=== PATIENT | male | born 2005 | race Caucasian/White ===

== ENCOUNTER 2023-07-15 14:47 | Outpatient (RCR) | payer OTHER, SELFPAY ==
--- NOTE | 2023-07-11 16:39 | PCPTNOTE ---
patient called and cancelled therapy evaluation today due to too much pain today.
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
--- NOTE | 2023-07-15 15:54 | OPREHPOC ---
Outpatient Therapy Plan of Care This is a Multidisciplinary Plan of Care that may contain components documented by all disciplines (PT, OT, and ST.) PT Problem 1 PT Problem #1 Knowledge Deficit PT Goal 1 Goal Independent with a HEP addressing c-spine ROM Target Visit 2 PT Problem 2 PT Problem #2 Impaired Range of Motion PT Goal 1 Goal Pt. will demonstrate 75 degrees or greater of bilateral c-spine rotation to improve visual field with driving. Pt. will demonstrate 40 degrees or greater of bilateral c-spine lateral flexion. Target Visit 8 PT Problem 3 PT Problem #3 Impaired Functional Mobil PT Goal 1 Goal Pt. will demonstrate less than 30% limitation with the NDI indicating improved overall function. Target Visit 8
--- NOTE | 2023-08-15 14:41 | OPREHPOC ---
Outpatient Therapy Plan of Care This is a Multidisciplinary Plan of Care that may contain components documented by all disciplines (PT, OT, and ST.) PT Problem 1 PT Problem #1 Knowledge Deficit PT Goal 1 Goal Independent with a HEP addressing c-spine ROM Target Visit 2 Progress Met PT Problem 2 PT Problem #2 Impaired Range of Motion PT Goal 1 Goal Pt. will demonstrate 75 degrees or greater of bilateral c-spine rotation to improve visual field with driving. Pt. will demonstrate 40 degrees or greater of bilateral c-spine lateral flexion. Target Visit 8 Progress Not Met PT Problem 3 PT Problem #3 Impaired Functional Mobil PT Goal 1 Goal Pt. will demonstrate less than 30% limitation with the NDI indicating improved overall function. Target Visit 8 Progress Not Met
--- NOTE | 2023-08-15 14:43 | OPREHPOC ---
Outpatient Therapy Plan of Care This is a Multidisciplinary Plan of Care that may contain components documented by all disciplines (PT, OT, and ST.) PT Problem 1 PT Problem #1 Knowledge Deficit PT Goal 1 Goal Independent with a HEP addressing c-spine ROM Target Visit 2 Progress Met PT Problem 2 PT Problem #2 Impaired Range of Motion PT Goal 1 Goal Pt. will demonstrate 75 degrees or greater of bilateral c-spine rotation to improve visual field with driving. Pt. will demonstrate 40 degrees or greater of bilateral c-spine lateral flexion. Target Visit 20 Progress Not Met PT Problem 3 PT Problem #3 Impaired Functional Mobil PT Goal 1 Goal Pt. will demonstrate less than 30% limitation with the NDI indicating improved overall function. Pt. will demonstrate ability to lift 40lbs from floor to waist and carry for 400ft or more. Target Visit 20 Progress Not Met
--- NOTE | 2023-08-15 14:43 | PTOPREEVAL ---
Assessment and note entered by JT File, PT Evaluation Information Assessment Status Re-evaluation Diagnosis pain in the t-spine, cervicalgia Onset 06/12/23 Subjective Information patient reports the last few days have been very painful. he reports he has been trying to do his exercises at home. however, he reports a few days ago he had a fall to his knees when trying to do some of his exercises. he reports the dry needling and therapy has helped, but reports he feels his symptoms go up and down. he reports he is really in pain today. he reports he goes back to the MD for follow up on 08/19/23. he reports the last few days he has been to therapy he was doing better and improving, but since the last few days he has been worse. he reports he is taking his meds as prescribed at home, but they are not helping currently. he reports he felt the dry needling was helping, but reports the neck has felt more tense the last few days. he reports he feels he is back to [facility] again now. he reports he is frustrated because he was doing better, but is now regressed. Reported Pain Level Pain Score 7: Self Report Assessment PT Clinical Summary /mr. mas presents to skilled PT for his 8th skilled therapy visit today. he missed his last therapy visit on 08/08/23 due to him not feeling good. prior to this, he was noting decreased pain, improve mobility, and improving quality of life/ function. dry needling has been performed for a total of 4 visits including today. his last dry needling was on 07/25/23. however, since this last dry needling, he had 1 visit with increased pain, and 2 additional visits with decreasing pain and symptoms. as oft his date, he appears to be back at square one. he has fallen and bruised in L knee during exercises at home, and his symptoms in the neck and upper back appear to be increased from this fall. given patients current return of symptoms, and his display of improvement during some part of skilled PT, suggest patient continue with skilled PT to be able to improve to return to prior level work duties. he was limited in exercise/activity tolerance today due to his pain and symptoms, but was instructed to continued HEP and skilled PT and movement will help get him back to his prior level. it may benefit patient from increased frequency with his sk
--- NOTE | 2023-08-26 15:17 | PCPTNOTE ---
Patient reports he is too tight to come today. Patient will be here Saturday.
--- NOTE | 2023-09-04 17:40 | PCPTNOTE ---
patient called to cancel therapy yesterday due to having car trouble and being unable to make it in.
--- NOTE | 2023-09-13 18:08 | PTOPDC ---
Assessment and note entered by JT File, PT Evaluation Information Assessment Status Discharge Diagnosis pain in the t-spine, cervicalgia Onset 06/12/23 Subjective Information patient reports he feels Great today. he reports earlier this week he was exercising and felt something release in his lower back. he reports since then he has had nearly no pain, and has really felt great. he reports he is ready to go back to work, and will be looking to get released this coming saturday. Reported Pain Level Pain Score 1,1: Self Report Assessment PT Clinical Summary mr. mas presents to skilled PT services today for his 17th skilled PT visit. today he displays decreased pain in the neck and lower back, improve neck and lower back rom, improved strength, and improve subjective reports of quality of life. he reports he has a follow up with the MD this saturday , and reports he will be seeking to be released to return to work. per his objective improvements today and subjective functional reports he displays the necessary strength, mobility, and decreased pain to return to full work duties. he will be DC'd from skilled PT services today and will continue with HEP independent. Plan of Care PT Services Indicated Yes
== END 2023-09-13 08:38 | disposition home or self-care (01) ==
LOC: CHSPT 14:47
DX: M54.2 Cervicalgia (principal); M54.6 Pain in thoracic spine
CPT/HCPCS: 20560; 97014; 97110; 97140; 97161; G0283